=== PATIENT | male | born 1955 | race Caucasian/White ===

== ENCOUNTER 2017-01-09 00:37 | Day surgery (SDC) | payer OTHER ==
[~2017-01-09] VITALS: Ht 167.6 cm; Wt 91.2 kg
[2017-01-09] VITALS (13 sets, daily range): BP systolic 107–155; BP diastolic 75–111; PULSE 62–69; RESP 14–23; O2SAT 91–94
[~2017-01-09 00:37] MED LIST: ASPI-973 PO; CARV25TA2 PO; FOLI1TAB18 PO; HYDR12.55 PO; LISI-567 PO; NIAC1000 PO; NITR0.4T SL; ROSU40TA PO
[2017-01-09 07:10] LABS: BASOPHILS % (AUTO) 0.7 % (0-3); EOSINOPHILS % (AUTO) 2.6 % (0-5); MONOCYTES % (AUTO) 9.6 % (4-12); Mean Corpuscular Hemoglobin 31.6 pg (27.0-35.0); Mean Corpuscular Volume 88.4 fL (81-100); NEUTROPHILS % (AUTO) 49.1 % (40-74); Platelet Count 182 bil/L (150-400)
--- NOTE | 2017-01-09 07:25 | NUR ---
Patient admitted for heart cath with Dr. Alexis.
[2017-01-09 07:26] LABS: INR 0.95 ratio
[2017-01-09] MEDS ORDERED: Heparin 1,000 Units/500 mL NS Premix IV ONE (07:51)
[2017-01-09] MEDS ORDERED: Heparin 5,000 Units/500 mL NS Premix IV ONE (07:51)
[2017-01-09] MEDS ORDERED: Heparin 1,000 Unit/mL 10 mL Inj ONE (07:52)
[2017-01-09] MEDS ORDERED: fentaNYL-PF 50 mCg/mL 2 mL Inj ONE (08:42)
--- NOTE | 2017-01-09 10:37 | DI95 ---
[place] [id number] INTERVENTIONAL CARDIAC CATHETERIZATION PATIENT: LANI DESAI : 1955 MR#: [id number] ADMIT: 01/09/2017 JOB ID: [id number] DATE: 01/09/2017 PROCEDURE: 1. Selective right and left coronary angiography. 2. Left heart catheterization. 3. Right heart catheterization. INDICATION: Coronary artery disease. Bicuspid aortic valve with suspected aortic stenosis. PROCEDURAL DETAILS: The reader is referred to the procedure log for complete details. Briefly, it was done via right femoral approach. ANGIOGRAPHIC FINDINGS: 1. [id number] calcification of the coronaries is noted on fluoroscopy. 2. Left main 10%-20% disease. 3. LAD is a moderate caliber transapical vessel. It has a stent in its mid portion. The stent appears to be patent. There is 20%-30% disease in the LAD. No critical stenosis is noted in the LAD. 4. Circumflex is nondominant. There is about a 30%-40% lesion in its mid segment. There is no critical stenosis. 5. Right coronary artery is dominant. Distally, it has in-stent restenosis of about 80%-90%. The distal right coronary artery is also seen via [id number] collaterals. 6. Left heart catheterization revealed an LVEDP of 19. There was a 38 mm mean gradient upon simultaneous measurement of aortic and LV pressures. This gave us an aortic valve area of 0.8 cm2. 7. Right heart catheterization revealed a wedge pressure of 11/10 with a mean of 8. PA pressure of 30/70, mean of 17. RV pressure 37 with an RVEDP of 6. RA pressure was 9/6 with a mean of 4. Given the patient's history of VSD a sat run was also done. RV sat was 67, RA sat was 70, FA sat was 94. There was no step-up noted. MARIELLE cardiac output was 4.7, thermodilution cardiac output was 4.4. In summary, this gentleman has severe aortic stenosis. He also has right coronary artery disease. I would recommend that he undergo aortic valve replacement with bypass to his right coronary or alternatively his right coronary artery can be intervened upon at a subsequent time. Of note left guide might be best suited to accomplish this. Also the patient, if interested, may be referred to [facility] for consideration of low risk [facility] trial enrollment.
--- NOTE | 2017-01-09 15:14 | NUR ---
pt originally off bedrest at 14:05.He was assisted to bathroom and then then encouraged to ambulate length of [address] in front of nurses station. At 14:25, on rechecking groin small, maybe 1 mm "knob"felt at groin site, no c/o pain on palpation, light manual pressure applied with area softening. Pt kept on bedrest x 30 minutes, area soft and then encouraged to ambulate again at 1455. Pt ambulated approx5 rounds of length of hallway, groin site remains soft. Discharge instructions reviewed earlier. Pt sent home ambulatory with daughter in attendance.
== END 2017-01-09 23:59 | disposition home or self-care (01) ==
LOC: SOUO 00:37
PROVIDERS: ATTEND Internal Medicine Cardiovascular Disease
DX: I25.10 Atherosclerotic heart disease of native coronary artery without angina pectoris (principal); T82.855A Stenosis of coronary artery stent, initial encounter; Y84.8 Other medical procedures as the cause of abnormal reaction of the patient, or of later complication, without mention of misadventure at the time of the procedure; Q23.1 Congenital insufficiency of aortic valve; I10 Essential (primary) hypertension; E78.5 Hyperlipidemia, unspecified; G47.30 Sleep apnea, unspecified; I25.2 Old myocardial infarction; Z79.82 Long term (current) use of aspirin
CPT/HCPCS: 36415; 80048; 85025; 85610; 93005; 93460; 99152; 99153; C1766; C1769; J1644; J2250; J3010; Q9967